=== PATIENT | female | born 1960 | race Two or more races ===

== ENCOUNTER 2018-03-04 09:13 | Outpatient (CLI) | payer OTHER | END 2018-03-04 09:19 | disposition home or self-care (01) | LOC: MAMO-SONO 09:13 | DX: N60.11 Diffuse cystic mastopathy of right breast (principal); N60.12 Diffuse cystic mastopathy of left breast; Z12.31 Encounter for screening mammogram for malignant neoplasm of breast ==

== ENCOUNTER 2019-03-09 07:47 | Outpatient (CLI) | payer OTHER | END 2019-03-09 08:48 | disposition home or self-care (01) | LOC: MAMO-SONO 07:47 | DX: N60.11 Diffuse cystic mastopathy of right breast (principal); N60.12 Diffuse cystic mastopathy of left breast; Z12.31 Encounter for screening mammogram for malignant neoplasm of breast ==

== ENCOUNTER 2019-06-01 08:11 | Outpatient (CLI) | payer OTHER | END 2019-06-01 08:29 | disposition home or self-care (01) | LOC: MRI 08:11 | DX: M54.16 Radiculopathy, lumbar region (principal); M54.41 Lumbago with sciatica, right side | CPT/HCPCS: 72148 ==

== ENCOUNTER 2020-08-15 14:20 | Outpatient (CLI) | payer OTHER | END 2020-08-15 14:38 | disposition home or self-care (01) | LOC: RAD 14:20 | PROVIDERS: ATTEND Surgery | DX: N60.11 Diffuse cystic mastopathy of right breast (principal); N60.12 Diffuse cystic mastopathy of left breast; M25.561 Pain in right knee; M25.571 Pain in right ankle and joints of right foot ==

== ENCOUNTER 2020-10-07 11:07 | Outpatient (CLI) | payer OTHER | END 2020-10-07 11:10 | disposition home or self-care (01) | LOC: MRI 11:07 | DX: S83.241A Other tear of medial meniscus, current injury, right knee, initial encounter (principal) | CPT/HCPCS: 73718 ==

== ENCOUNTER 2021-08-16 07:38 | Outpatient (CLI) | payer OTHER | END 2021-08-16 07:56 | disposition home or self-care (01) | LOC: MAMO-SONO 07:38 | PROVIDERS: ATTEND Surgery | DX: N60.02 Solitary cyst of left breast (principal); N60.01 Solitary cyst of right breast; Z12.31 Encounter for screening mammogram for malignant neoplasm of breast; N60.11 Diffuse cystic mastopathy of right breast; N60.12 Diffuse cystic mastopathy of left breast ==

== ENCOUNTER 2022-11-02 13:34 | Outpatient (CLI) | payer OTHER | END 2022-11-02 13:52 | disposition home or self-care (01) | LOC: MAMO-SONO 13:34 | PROVIDERS: ATTEND Surgery | DX: N60.11 Diffuse cystic mastopathy of right breast (principal); N60.12 Diffuse cystic mastopathy of left breast ==

== ENCOUNTER → 2023-03-01 | Outpatient (CLI) | payer OTHER | END | disposition home or self-care (01) | LOC: RAD 10:20 | DX: M41.26 Other idiopathic scoliosis, lumbar region (principal) ==

== ENCOUNTER 2023-11-04 09:56 | Outpatient (CLI) | payer OTHER | END 2023-11-04 10:04 | disposition home or self-care (01) | LOC: MAMO-SONO 09:56 | PROVIDERS: ATTEND Surgery | DX: N60.11 Diffuse cystic mastopathy of right breast (principal); N60.12 Diffuse cystic mastopathy of left breast ==

== ENCOUNTER 2023-11-04 09:57 | Outpatient (CLI) | payer OTHER | END 2023-11-04 10:02 | disposition home or self-care (01) | LOC: SONOGRAMA 09:57 | PROVIDERS: ATTEND Pathology Anatomic Pathology & Clinical Pathology | DX: D34 Benign neoplasm of thyroid gland (principal); E07.89 Other specified disorders of thyroid; E04.1 Nontoxic single thyroid nodule ==

== ENCOUNTER 2024-01-09 14:20 | Outpatient (CLI) | payer OTHER | END 2024-01-09 14:27 | disposition home or self-care (01) | LOC: RAD 14:20 | DX: M17.0 Bilateral primary osteoarthritis of knee (principal) ==

== ENCOUNTER → 2024-10-13 12:45 | Outpatient (CLI) | payer OTHER | END | disposition home or self-care (01) | LOC: NUCLEAR 12:45 | PROVIDERS: ATTEND General Practice | DX: M81.0 Age-related osteoporosis without current pathological fracture (principal) ==

== ENCOUNTER 2024-11-25 09:23 | Outpatient (CLI) | payer OTHER | END 2024-11-25 09:33 | disposition home or self-care (01) | LOC: MAMO-SONO 09:23 | PROVIDERS: ATTEND Surgery | DX: N60.11 Diffuse cystic mastopathy of right breast (principal); N60.12 Diffuse cystic mastopathy of left breast ==

== ENCOUNTER 2025-03-10 09:09 | Outpatient (CLI) | payer OTHER | END 2025-03-10 09:13 | disposition home or self-care (01) | LOC: RAD 09:09 | PROVIDERS: ATTEND Orthopaedic Surgery Adult Reconstructive Orthopaedic Surgery | DX: M16.0 Bilateral primary osteoarthritis of hip (principal); M17.0 Bilateral primary osteoarthritis of knee ==

== ENCOUNTER 2025-08-30 07:51 | Outpatient (CLI) | payer OTHER | END 2025-08-30 08:14 | disposition home or self-care (01) | LOC: MRI 07:51 | PROVIDERS: ATTEND General Practice | DX: G31.84 Mild cognitive impairment of uncertain or unknown etiology (principal); E04.2 Nontoxic multinodular goiter | CPT/HCPCS: 70551 ==